=== PATIENT | male | born 1965 | race Caucasian/White ===

== ENCOUNTER → 2017-08-24 | Outpatient (CLI) | payer BC | END | disposition home or self-care (01) | LOC: LABWHC1 07:14 | PROVIDERS: ATTEND Orthopaedic Surgery | DX: M19.012 Primary osteoarthritis, left shoulder (principal) | CPT/HCPCS: 87070 ==

== ENCOUNTER 2018-11-03 06:56 | Day surgery (SDC) | payer BC ==
[2018-11-01 10:09] VITALS: BMI 28.5
[~2018-11-03 06:56] MED LIST: LACTATED RINGERS 1,000 ML IV SCH; LIDOCAINE 1% 20 ML VIAL (10MG/ML) FOR IV START INTRADERMA PRN
[2018-11-03 07:14] VITALS: TEMP 97.7
[2018-11-03] MEDS ORDERED: PROPOFOL 10 MG/ML 20 ML VIAL IV ONE (07:45)
--- NOTE | 2018-11-03 07:47 | P.GSHP ---
History of Present Illness H&P Date: 11/03/18 Chief Complaint: GI bleed, hemorrhoids This is a 52-year-old male who presents today for colonoscopy. Patient issues with rectal bleeding. He has history of hemorrhoids. Past Medical History Past Medical History: GERD/Reflux, Osteoarthritis (OA) Additional Past Medical History / Comment(s): pink clear discharge with and without stools,concussion(sports injury), LT INGUINAL HERNIA, IBS History of Any Multi-Drug Resistant Organisms: None Reported Past Surgical History: Orthopedic Surgery Additional Past Surgical History / Comment(s): LASIK EYE SX, X2 RT SHOULDER SX,left shoulder replacement Past Anesthesia/Blood Transfusion Reactions: Motion Sickness Additional Past Anesthesia/Blood Transfusion Reaction / Comment(s): claustrophobic in mri/ct scan machines Smoking Status: Former smoker - Past Family History Mother Family Medical History: No Reported History Medications and Allergies Home Medications Medication Instructions Recorded Confirmed Type Aspirin 81 mg PO DAILY 11/01/18 11/03/18 History Multivit-Min/Folic/Vit K/Lycop 1 each PO DAILY 11/01/18 11/03/18 History [Men's Multivitamin Tablet] [place]-3 Fatty Acids/Fish Oil [Fish 2 each PO BID 11/01/18 11/03/18 History Oil 1,000 mg Softgel] Rosuvastatin [Crestor] 10 mg PO DAILY 11/01/18 11/03/18 History Allergies Allergy/AdvReac Type Severity Reaction Status Date / Time Sulfa (Sulfonamide Allergy Rash/Hives Verified 11/03/18 07:09 Antibiotics) Surgical - Exam Vital Signs Temp Pulse Resp BP Pulse Ox 97.7 F 72 17 137/90 97 11/03/18 07:12 11/03/18 07:12 11/03/18 07:12 11/03/18 07:12 11/03/18 07:12 - General well developed, well nourished, no distress - Eyes PERRL - ENT normal pinna - Neck no masses - Respiratory normal expansion - Cardiovascular Rhythm: regular - Abdomen Abdomen: soft, non tender Assessment and Plan Assessment: GI bleed, history of hemorrhoids. We'll perform colonoscopy.
[2018-11-03 08:26] VITALS: BP 113/71; PULSE 72; RESP 18
--- NOTE | 2018-11-09 07:23 | P.OP ---
Date of Procedure: 11/03/18 Preoperative Diagnosis: External hemorrhoids GI bleed Postoperative Diagnosis: Diverticulosis External hemorrhoids Procedure(s) Performed: Colonoscopy Anesthesia: FROY Surgeon: Kobe Lora Pathology: none sent Condition: stable Disposition: PACU Description of Procedure: Patient's placed on the endoscopy table in the lateral position. He received IV sedation. Digital rectal exam was performed which revealed external hemorrhoids. Flexible colonoscope was then placed patient anus and passed thr oughout the entire colon. The ileocecal valve was visualized. The cecum, ascending and transverse colon appeared normal. In the descending; there was diverticulosis seen. There is no evidence of diverticulitis. Scope was then brought back into the rectum and this appeared normal. Scope was withdrawn through the anus and external and internal hemorrhoids were noted. Scope was withdrawn for patient. It was presumed that his bleeding is due to external hemorrhoids.
== END 2018-11-03 08:58 | disposition home or self-care (01) ==
LOC: ORWHC2ENDO 06:56
PROVIDERS: ATTEND Surgery
DX: K92.2 Gastrointestinal hemorrhage, unspecified (principal); K64.4 Residual hemorrhoidal skin tags; K64.8 Other hemorrhoids; K21.9 Gastro-esophageal reflux disease without esophagitis; M19.90 Unspecified osteoarthritis, unspecified site; Z79.82 Long term (current) use of aspirin; Z87.891 Personal history of nicotine dependence; Z88.2 Allergy status to sulfonamides; Z96.612 Presence of left artificial shoulder joint; F40.240 Claustrophobia; Z79.899 Other long term (current) drug therapy; E78.5 Hyperlipidemia, unspecified
CPT/HCPCS: 45378; J2704

== ENCOUNTER 2018-11-07 06:25 | Day surgery (SDC) | payer BC ==
[2018-11-01 10:28] VITALS: BMI 28.5
[~2018-11-07 06:25] MED LIST changes: +DEXAMETHASONE SOD PHOSPHATE 10 MG/ML 1 ML VIAL IV ONE; +HEPARIN SODIUM,PORCINE 5,000 UNIT/ML 1 ML VIAL SQ ONE; +HYDROmorphone 0.5 MG/0.5 ML SYRINGE IVP PRN; -LIDOCAINE 1% 20 ML VIAL (10MG/ML) FOR IV START INTRADERMA PRN; +MIDAZOLAM 2 MG/2 ML VIAL IV PRN; +ONDANSETRON 4 MG/2 ML VIAL IVP ONE; +Pre Op ABX Message 1 EACH MISC MISCELLANE ONE; +SCOPOLAMINE 1.5MG/72HR PATCH TRANSDERM ONE
[2018-11-07] MEDS ORDERED: KETAMINE 10 MG/ML 20 ML VIAL ONE (07:59)
[2018-11-07] MEDS ORDERED: PROPOFOL 10 MG/ML 20 ML VIAL IV ONE (07:59)
[2018-11-07] MEDS ORDERED: MIDAZOLAM 2 MG/2 ML VIAL ONE (07:59)
[2018-11-07] MEDS ORDERED: KETOROLAC 30 MG/ML 1 ML VIAL ONE (07:59)
[2018-11-07] MEDS ORDERED: BUPIVACAIN-EPI 0.5%-1:200,000 30 ML VIAL SQ ONE ×2 (08:16)
--- NOTE | 2018-11-07 08:25 | P.GSHP ---
History of Present Illness H&P Date: 11/07/18 Chief Complaint: Internal and external hemorrhoids This is a 52-year-old male who presents today for hemorrhoidectomy. He's had issues with anal bleeding and pain. He is recently underwent Colonoscopy about of Internal and External Hemorrhoids. Past Medical History Past Medical History: GERD/Reflux, Osteoarthritis (OA) Additional Past Medical History / Comment(s): pink clear discharge with and without stools,concussion(sports injury), LT INGUINAL HERNIA, IBS History of Any Multi-Drug Resistant Organisms: None Reported Past Surgical History: Orthopedic Surgery Additional Past Surgical History / Comment(s): LASIK EYE SX, X2 RT SHOULDER SX,left shoulder replacement Past Anesthesia/Blood Transfusion Reactions: Motion Sickness Additional Past Anesthesia/Blood Transfusion Reaction / Comment(s): claustrophobic in mri/ct scan machines Smoking Status: Former smoker - Past Family History Mother Family Medical History: No Reported History Medications and Allergies Home Medications Medication Instructions Recorded Confirmed Type Aspirin 81 mg PO DAILY 11/01/18 11/07/18 History Multivit-Min/Folic/Vit K/Lycop 1 each PO DAILY 11/01/18 11/07/18 History [Men's Multivitamin Tablet] [place]-3 Fatty Acids/Fish Oil [Fish 2 each PO BID 11/01/18 11/07/18 History Oil 1,000 mg Softgel] Rosuvastatin [Crestor] 10 mg PO DAILY 11/01/18 11/07/18 History Allergies Allergy/AdvReac Type Severity Reaction Status Date / Time Sulfa (Sulfonamide Allergy Rash/Hives Verified 11/07/18 06:40 Antibiotics) Surgical - Exam Vital Signs Temp Pulse Resp BP Pulse Ox 97.4 F L 68 16 136/90 96 11/07/18 06:49 11/07/18 06:49 11/07/18 06:49 11/07/18 06:49 11/07/18 06:49 - General well developed, well nourished, no distress - Eyes PERRL - ENT normal pinna - Neck no masses - Respiratory normal expansion - Cardiovascular Rhythm: regular - Abdomen Abdomen: soft, non tender Assessment and Plan Assessment: Internal and external hemorrhoids. We'll perform colonoscopy.
[2018-11-07] MEDS ORDERED: GELATIN SPONGE,ABSORB (LARGE) 1 EACH SPONGE TOPICAL ONE (08:38)
--- NOTE | 2018-11-07 08:52 | P.OP ---
Date of Procedure: 11/07/18 Preoperative Diagnosis: Internal and external hemorrhoids Postoperative Diagnosis: Internal and external hemorrhoids Procedure(s) Performed: Internal and external hemorrhoidectomy Anesthesia: local Surgeon: Kobe Lora Estimated Blood Loss (ml): 5 Pathology: other (Internal and external hemorrhoids) Condition: stable Disposition: PACU Description of Procedure: Patient's placed on the operative table in the prone position. His anus was prepped and draped usual sterile fashion. Patient had internal/external hemorrhoids. The anal retractors placed anus. The left posterior column was grasped with a pair of Allis clamps and using the Harmonic scissors the hemorrhoidectomy was performed. Next an identical fashion the right lateral hemorrhoidal column was grasped in these were excised as well with the Harmonic scissors. At the 12 o'clock position another internal hemorrhoid was excised. Patient tolerated procedure well the wound was packed for hemostasis there is no bleeding seen. The anus was packed with Gelfoam. Patient top she will was sent to recovery in stable condition.
[2018-11-07 08:54] VITALS: TEMP 97.2
[2018-11-07] MEDS ORDERED: NA PHOS,M-B/NA PHOS,DI-BA 133 ML ENEMA RECTAL ONE (09:00)
[2018-11-07 09:51] VITALS: BP 143/87; PULSE 72; RESP 18
== END 2018-11-07 10:24 | disposition home or self-care (01) ==
LOC: OR 06:25
PROVIDERS: ATTEND Surgery
DX: K64.8 Other hemorrhoids (principal); K64.4 Residual hemorrhoidal skin tags; K21.9 Gastro-esophageal reflux disease without esophagitis; K58.9 Irritable bowel syndrome, unspecified; M19.90 Unspecified osteoarthritis, unspecified site; K40.90 Unilateral inguinal hernia, without obstruction or gangrene, not specified as recurrent; Z87.891 Personal history of nicotine dependence; Z79.82 Long term (current) use of aspirin; Z79.899 Other long term (current) drug therapy; Z88.2 Allergy status to sulfonamides
CPT/HCPCS: 88304; 46260; J2250; J1644; J1100; J2405; J1885; J2704

== ENCOUNTER → 2021-02-19 | Outpatient (CLI) | payer BC ==
--- NOTE | 2021-02-19 22:55 | CONS ---
CONSULTATION DATE OF SERVICE: 02/19/2021 This 55-year-old gentleman has been evaluated in [facility] for possible obstructive sleep apnea-hypopnea syndrome. HISTORY OF PRESENT ILLNESS/SLEEP-WAKE EVALUATION: Patient's usual sleep schedule is from 10 p.m. until 6:30 a.m. on weekdays and from 10 or 11 p.m. until 7 or 8 a.m. on weekends. No problems usually with falling asleep. No TV in bedroom. He prefers to sleep on the side position. He snores and wakes up from sleep multiple times, with up to two episodes of nocturia. According to his , he stops breathing during sleep and also occasionally has sweating during the night. In the morning the patient wakes up tired, has problems with memory occasionally, irritability, some sexual dysfunction. Stedman Sleepiness Scale is increased at 10. PAST MEDICAL HISTORY: Positive for acid reflux, hyperlipidemia, shoulder pain, back pain, carpal tunnel syndrome, hemorrhoids. PAST SURGICAL HISTORY: Surgery for carpal tunnel syndrome on left hand, hemorrhoidectomy, left shoulder replacement and right shoulder rotator cuff surgery. MEDICATIONS: 1. Rosuvastatin 10 mg once a day. 2. Aspirin 81 mg once a day. 3. Naproxen 500 mg 1-3 times a day. 4. Cyclobenzaprine 10 mg twice a day. 5. up to 2 times a day. SOCIAL HISTORY: Positive for smoking for about 30 pack/years; quit 5 years ago. Alcohol consumption several times a week up to 2 beers. FAMILY HISTORY: Heart problems, diabetes. REVIEW OF SYSTEMS: No fevers. No double vision. No recent chest pain. No shortness of breath. No abdominal pain. No bleeding episodes. No blood in the urine. No seizure episodes. Snoring, multiple awakenings from sleep. PHYSICAL EXAMINATION: GENERAL: Pleasant gentleman without distress. VITAL SIGNS: BP 125/84, HR 76, RR 15, height 5 feet 11 inches, weight 201.2, temperature 97.4, oxygen saturation at room air 98%. HEENT: PERRLA, EOMI, evaluation of oropharynx showed tongue protrudes midline. Moderately low position of soft palate; Mallampati II to III. Big uvula. Wide pillars. NECK: Supple, no JVD. Thyroid is not palpable. Neck measures 17 inches in circumference. LUNGS: Clear to percussion and to auscultation. Good air exchange. No wheezing or rhonchi. HEART: S1, S2 regular. No murmurs, gallops, or rubs. ABDOMEN: Soft and nontender. Bowel sounds are present. No organomegaly appreciated. EXTREMITIES: No clubbing or cyanosis. [employer]: Awake, alert, and oriented X3. Cranial nerves 2 to 7 intact. There is no fasciculation or atrophy. noted. No focal deficits observed. IMPRESSION: 1. Snoring, multiple awakenings from sleep, small oropharyngeal air space, wide neck at 17 inches, sleepiness, Stedman Sleepiness Scale increased to 10; obstructive sleep apnea-hypopnea syndrome. 2. Hyperlipidemia. 3. Acid reflux. 4. Shoulder pain. 5. Back pain. 6. Status post surgery for carpal tunnel syndrome on left hand. 7. Status post hemorrhoidectomy. 8. Status post left shoulder replacement. 9. Status post surgery for rotator cuff on the right side x2. PLAN: 1. Polysomnography for evaluation of patient's breathing during sleep. 2. Following plan after reviewing results of sleep study. 3. Sleep hygiene with regular time in bed for 7-1/2 to 8 hours. 4. Precautions related to driving. No driving if feeling sleepiness. Thank you very much for referring this patient for consultation. Sincerely, David Messer MD, PhD, FAASM Diplomat of [place] [employer] Sleep Medicine Board of [place] [employer] Ibm Bpm Developer of [facility] [place] MMODL / IJN: [id number] /
== END ==
LOC: SLEEP 16:29
PROVIDERS: ATTEND Internal Medicine
DX: G47.33 Obstructive sleep apnea (adult) (pediatric) (principal); E78.5 Hyperlipidemia, unspecified; K21.9 Gastro-esophageal reflux disease without esophagitis; M25.519 Pain in unspecified shoulder; M54.5 Low back pain; Z98.890 Other specified postprocedural states; Z96.612 Presence of left artificial shoulder joint; Z87.891 Personal history of nicotine dependence; Z88.2 Allergy status to sulfonamides
CPT/HCPCS: 99211